=== PATIENT | female | born 1995 | race Caucasian/White ===

== ENCOUNTER 2018-02-07 01:46 | Emergency (ER) | payer SELFPAY ==
--- NOTE | 2018-02-07 02:03 | PDOC ---
History of Present Illness - General Stated Complaint: DIZZY/SYNCOPE Time Seen by Provider: 02/07/18 01:48 History Source: Patient Exam Limitations: No Limitations - History of Present Illness Initial Comments: 02/07/18 02:04 Best Contact:[phone] PCP:N/A Pmhx:N/A Pshx:N/A Allergies:NKDA FH:N/A Social Hx: Cigarettes/ 0 Alcohol/ 0 Drugs/0 LMP: 02/03/2018 22-year-old female presents [facility] with her family after having a syncopal episode just prior to her arrival. Patient states she was drinking beer and wine this evening while smoking a Hooka causing her to feel dazed when she fell onto her right side and is experiencing a 5/10 dull non radiating right occipital herbert.. Syncope was witnessed by friends who denied any LOC. Patient denies dizziness, lightheadedness, facial pains, neck pain/stiffness, back pains , chest pain, shortness of breath, abdominal pains, flank pains, urinary symptoms. Patient states she feels much better since arriving to the emergency department. Past History - Past Medical History Allergies/Adverse Reactions: Allergies Allergy/AdvReac Type Severity Reaction Status Date / Time No Known Allergies Allergy Verified 02/07/18 02:33 Home Medications: Ambulatory Orders Medroxyprogesterone Acetate [Depo-Provera] 0 mg IM ASDIR 07/29/16 - Suicide/Smoking/Psychosocial Hx Smoking History: Never smoked Have you smoked in the past 12 months: No Hx Alcohol Use: No Substance Use Type: Alcohol Review of Systems - Review of Systems Able to Perform ROS?: Yes Comments:: 02/07/18 02:08 CONSTITUTIONAL: Absent: fever, chills, diaphoresis, generalized weakness, malaise, loss of appetite HEENT: Absent: rhinorrhea, nasal congestion, throat pain, throat swelling, difficulty swallowing, mouth swelling, ear pain, eye pain, visual Changes CARDIOVASCULAR: Absent: chest pain, loss of consciousness, palpitations, irregular heart rate, peripheral edema RESPIRATORY: Absent: cough, shortness of breath, dyspnea with exertion, orthopnea, wheezing, stridor, hemoptysis GASTROINTESTINAL: Absent: abdominal pain, abdominal distension, nausea, vomiting, diarrhea, constipation, melena, hematochezia GENITOURINARY: Absent: dysuria, frequency, urgency, hesitancy, hematuria, flank pain, genital pain MUSCULOSKELETAL: Absent: myalgia, arthralgia, joint swelling SKIN: Absent: rash, itching, pallor HEMATOLOGIC/IMMUNOLOGIC: Absent: easy bleeding, easy bruising, lymphadenopathy, frequent infections ENDOCRINE: Absent: unexplained weight gain, unexplained weight loss, heat intolerance, cold intolerance NEUROLOGIC: +right occipital herbert Absent: focal weakness or paresthesias, dizziness, unsteady gait, seizure, mental status changes, bladder or bowel incontinence PSYCHIATRIC: Absent: anxiety, depression, suicidal or homicidal ideation, hallucinations. Is the patient limited [place] Citizen proficient: No *Physical Exam - Physical Exam Comments: 02/07/18 02:09 GENERAL: Well developed, well nourished. Awake and alert. No acute distress. HEENT: Normocephalic, atraumatic. PERRLA, EOMI. No conjunctival pallor. Sclera are non- icteric. Moist mucous membranes. Oropharynx is clear. NECK: Supple. Full ROM. No JVD. Carotid pulses 2+ and symmetric, without bruits. No thyromegaly. No lymphadenopathy. CARDIOVASCULAR: Regular rate and rhythm. No murmurs, rubs, or gallops. Distal pulses are 2+ and symmetric. PULMONARY: No evidence of respiratory distress. Lungs clear to auscultation bilaterally. No wheezing, rales or rhonchi. ABDOMINAL: Soft. Non-tender. Non-distended. No rebound or guarding. No organomegaly. Normoactive bowel sounds. MUSCULOSKELETAL Normal range of motion at all joints. No bony deformities or tenderness. No CVA tenderness. EXTREMITIES: No cyanosis. No clubbing. No edema. No calf tenderness. SKIN: Warm and dry. Normal capillary refill. No rashes. No jaundice. NEUROLOGICAL: Alert, awake, appropriate. Cranial nerves 2-12 intact. No deficits to light touch and temperature in face, upper extremities and lower extremities. No motor deficits in the in face, upper extremities and lower extremities. Normoreflexic in the upper and lower extremities. Normal speech. Toes are down- going bilaterally. Gait is normal without ataxia. PSYCHIATRIC: Cooperative. Good eye contact. Appropriate mood and affect. ED Treatment Course - LABORATORY CBC & Chemistry Diagram: 02/07/18 02:22 02/07/18 02:22 - RADIOLOGY Radiograph Interpretation: 02/07/18 04:15 CT head w/o contrast: Normal exam *DC/Admit/Observation/Transfer Diagnosis at time of Disposition: Vasovagal near syncope, Abrasion Head injury Qualifiers: Encounter type: initial encounter Qualified Code(s): S09.90XA - Unspecified injury of head, initial encounter - Discharge Dispostion Condition at time of disposition: Fair Decision to Admit order: No - Referrals Referrals: Tish Sapp MD [Primary Care Provider] - Andreas Lemon MD [Staff Physician] - - Patient Instructions Printed Discharge Instructions: DI for Dizziness-Nonvertigo Additional Instructions: Avoid Hookah bars Tryto stay away from alcohol Increase fluids Follow up with your doctor within 2 days Return to the ER for any concerns Abrasion bacitracin to back of head - Post Discharge Activity
[2018-02-07] MEDS ORDERED: SODIUM CHLORIDE 1,000 ML IV STA (02:04)
[2018-02-07 02:32] VITALS: TEMP 98; BMI 22.3
[2018-02-07 02:35] LABS: BASO % 0.4 % (0-2.0); EOS % 0.8 % (0-4.5); HEMATOCRIT 41.2 % (32.4-45.2); HEMOGLOBIN 13.8 GM/dL (10.7-15.3); MCH 30.4 pg (25.7-33.7); MCHC 33.6 g/dl (32.0-36.0); MEAN CELL VOLUME 90.6 fl (80-96); MEAN PLT VOLUME 7.8 fl (7.5-11.1); MONO % 6.2 % (3.8-10.2); NEUT % 58.6 % (42.8-82.8); PLATELET COUNT 250 K/MM3 (134-434); RBC 4.55 M/mm3 (3.60-5.2); RDW 13.6 % (11.6-15.6); WHITE BLOOD COUNT 6.7 K/mm3 (4.0-10.0)
[2018-02-07 02:59] LABS: ALBUMIN 4.1 g/dl (3.4-5.0); ANION GAP 9 (8-16); BILIRUBIN,TOTAL 0.4 mg/dL (0.2-1.0); BLOOD UREA NITROGEN 18 mg/dL (7-18); CALCIUM 8.9 mg/dL (8.5-10.1); CHLORIDE 106 mmol/L (98-107); CO2 28 mmol/L (21-32); CREATININE 0.7 mg/dL (0.55-1.02); GLUCOSE,RANDOM 98 mg/dL (74-106); POTASSIUM 4.2 mmol/L (3.5-5.1); SGOT/AST 23 U/L (15-37); SGPT/ALT 19 U/L (12-78); SODIUM 143 mmol/L (136-145); TOT PROT 7.5 g/dl (6.4-8.2)
[2018-02-07 03:00] LABS: ALK PHOS 48 U/L (45-117)
[2018-02-07 04:36] VITALS: BP 95/55; PULSE 90
== END 2018-02-07 04:36 | disposition home or self-care (01) ==
LOC: JER 01:46
PROC: 3E0337Z Introduction of Electrolytic and Water Balance Substance into Peripheral Vein, Percutaneous Approach (ICD-10-PCS; principal; 2018-02-07)
DX: R55 Syncope and collapse (principal); S00.01XA Abrasion of scalp, initial encounter; W18.39XA Other fall on same level, initial encounter; Y93.89 Activity, other specified; Y92.89 Other specified places as the place of occurrence of the external cause; Y99.8 Other external cause status
CPT/HCPCS: 36415; 70450-TC; 80053; 80307; 84703; 85025; 99283-25; J7030